=== PATIENT | female | born 1990 | race Caucasian/White ===

== ENCOUNTER 2018-04-13 02:09 | Emergency (ER) | payer MEDICAID ==
--- NOTE | 2018-04-13 02:19 | EDPHY ---
H & P Stated Complaint: syncope at [facility], A+Ox4, uncooperative/argumentative, ETOH Time Seen by Provider: 04/13/18 02:19 HPI/ROS: HPI CHIEF COMPLAINT: Alcohol Intoxication, syncope, ARC hold. HISTORY OF PRESENT ILLNESS: 28-year-old female, presents to the emergency room by EMS after she was brought initially to the alcohol recovery Center as she was highly intoxicated with alcohol however upon arrival to the center she has syncopal episode. Brief LOC. No head strike. She was subsequently then transported to the emergency room after she had a syncopal episode there. She arrives to ER room 3, highly intoxicated with alcohol. States she drank too much tonight. Denies any other complaints. Past Medical History: History of heroin abuse, polysubstance drug use, history of poly trauma Past Surgical History: No recent surgery. Social History: Alcohol this evening. Patient reports multiple beers and a shot. Family History: Noncontributory ROS REVIEW OF SYSTEMS: Limited due to patient's acute alcohol intoxication. Exam Constitutional Intoxicated, triage nursing summary reviewed, vital signs reviewed, Sleepy, smells of alcohol Eyes normal conjunctivae and sclera, horizontal beating nystagmus consistent acute alcohol intoxication, otherwise pupils equal and react to light HENT normal inspection, atraumatic, moist mucus membranes, no epistaxis, neck supple/ no meningismus, no raccoon eyes. Respiratory clear to auscultation bilaterally, normal breath sounds, no respiratory distress, no wheezing. Cardiovascular rate normal, regular rhythm, no murmur, no edema, distal pulses normal. Gastrointestinal soft, non-tender, no rebound, no guarding, normal bowel sounds, no distension, no pulsatile mass. Genitourinary no CVA tenderness. Musculoskeletal no midline vertebral tenderness, full range of motion, no calf swelling, no tenderness of extremities, no meningismus, good pulses, neurovascularly intact. Skin pink, warm, & dry, no rash, skin atraumatic. Neurologic sleepy, intoxicated with alcohol,, alert and oriented x 3, AAOx3, moves all 4 extremities equally, motor intact, sensory intact, CN II-XII intact , , normal vision, normal speech. Psychiatric normal mood/affect. Heme/Lymph/Immune no lymphadenopathy. Differential Diagnosis: Includes but is not limited to in a particular order acute alcohol intoxication, alcohol abuse, dehydration, electrolyte abnormality , nausea vomiting from acute alcohol intoxication, vasovagal syncope, orthostatic syncope, cardiac arrhythmia, electrolyte disturbance, dehydration Medical Decision Making: Plan for this patient she arrives to emergency room highly intoxicated had a syncopal episode at the detox center. And IV will be established the patient received IV fluid bolus, patient placed on residential monitor, obtain EKG, electrolytes, serum alcohol level and re-evaluate. Re-evaluation: EKG interpretation by me on record in [facility] system. Impression time of EKG 2:38 a.m., sinus rhythm rate of 86 without any signs of acute ischemia or cardiac arrhythmia. Unremarkable nonischemic EKG. 0250AM: Patient attempted to run out of room ER #3, to the ambulance bay and outside. Patient is on an ARC hold, and is highly intoxicated. Security had to bring her back inside and place her in ER room #21, which is far from the exit of the ER for her safety. Given her ETOH level is over 300, she is at risk of leaving the er by herself. She remains on an ARC hold and will need more time to sober. Serum alcohol level 339. At 3:55 a.m.. 3:55 a.m. patient intoxicated with etoh. For her safety she is too intoxicated be discharged safely from the emergency room she will need more time to sober. 0440: Patient is calm and cooperative answers my questions appropriately she is stable gait. She is on arc hold. We have asked the police to transfer her to [facility] detox center. Patient is comfortable this, clinically sober, ambulates well, answers questions appropriately and is calm and cooperative at this time. Source: Patient, EMS - Personal History LMP (Females 10-55): 15-21 Days Ago Current Tetanus/Diphtheria Vaccine: Yes Current Tetanus Diphtheria and Acellular Pertussis (TDAP): Yes - Medical/Surgical History Hx Asthma: No Hx Chronic Respiratory Disease: No Hx Diabetes: No Hx Cardiac Disease: No Hx Renal Disease: No Hx Cirrhosis: No Hx Alcoholism: Yes Hx HIV/AIDS: No Hx Splenectomy or Spleen Trauma: No Other PMH: ovarian cysts;depression, ETOH. MHD: cutter feb 2005; - Social History Smoking Status: Heavy smoker Constitutional: Initial Vital Signs Temperature (C) 36.5 C 04/13/18 02:13 Heart Rate 96 04/13/18 02:13 Respiratory Rate 18 04/13/18 02:13 Blood Pressure 121/80 H 04/13/18 02:13 O2 Sat (%) 95 04/13/18 02:13 O2 Delivery Mode Room Air Allergies/Adverse Reactions: No Known Allergies Allergy (Verified 04/13/18 02:12) Home Medications: Medication Instructions Recorded NK [No Known Home Meds] 04/13/18 Medical Decision Making - Data Points Laboratory Results: Laboratory Results 04/13/18 02:30 04/13/18 02:30 04/13/18 04/13/18 04/13/18 02:30 02:30 02:30 WBC 5.19 10^3/uL 10^3/uL (3.80-9.50) RBC 5.14 10^6/uL 10^6/uL (4.18-5.33) Hgb 16.5 g/dL H g/dL (12.6-16.3) Hct 47.5 % H % (38.0-47.0) MCV 92.4 fL fL (81.5-99.8) MCH 32.1 pg pg (27.9-34.1) MCHC 34.7 g/dL g/dL (32.4-36.7) RDW 14.4 % % (11.5-15.2) Plt Count 265 10^3/uL 10^3/uL (150-400) MPV 9.4 fL fL (8.7-11.7) Neut % (Auto) 47.7 % % (39.3-74.2) Lymph % (Auto) 43.0 % % (15.0-45.0) [place] % (Auto) 7.3 % % (4.5-13.0) Eos % (Auto) 1.0 % % (0.6-7.6) Baso % (Auto) 0.8 % % (0.3-1.7) Nucleat RBC Rel Count 0.0 % % (0.0-0.2) Absolute Neuts (auto) 2.48 10^3/uL 10^3/uL (1.70-6.50) Absolute Lymphs (auto) 2.23 10^3/uL 10^3/uL (1.00-3.00) Absolute Monos (auto) 0.38 10^3/uL 10^3/uL (0.30-0.80) Absolute Eos (auto) 0.05 10^3/uL 10^3/uL (0.03-0.40) Absolute Basos (auto) 0.04 10^3/uL 10^3/uL (0.02-0.10) Absolute Nucleated RBC 0.00 10^3/uL 10^3/uL (0-0.01) Immature Gran % 0.2 % % (0.0-1.1) Immature Gran # 0.01 10^3/uL 10^3/uL (0.00-0.10) Sodium 149 mEq/L H mEq/L (135-145) Potassium 4.1 mEq/L mEq/L (3.5-5.2) Chloride 114 mEq/L H mEq/L (97-110) Carbon Dioxide 24 mEq/l mEq/l (22-31) Anion Gap 11 mEq/L mEq/L (6-14) BUN 7 mg/dL mg/dL (7-23) Creatinine 0.6 mg/dL mg/dL (0.6-1.0) Estimated GFR > 60 Glucose 99 mg/dL mg/dL (70-100) Calcium 9.5 mg/dL mg/dL (8.5-10.4) Beta HCG, Qual NEGATIVE Ethyl Alcohol 339 mg/dL H mg/dL (0-10) Medications Given: Discontinued Medications Sodium Chloride (Ns) 1,000 mls @ 0 mls/hr IV EDNOW ONE; Wide Open PRN Reason: Protocol Stop: 04/13/18 02:23 Last Admin: 04/13/18 02:34 Dose: 1,000 mls Departure - Departure Disposition: Home, Routine, Self-Care Clinical Impression: Alcohol intoxication Qualifiers: Complication of substance-induced condition: uncomplicated Qualified Code(s): F10.920 - Alcohol use, unspecified with intoxication, uncomplicated Condition: Good Instructions: Alcohol Intoxication (ED), Abuse of Alcohol (ED) Referrals: NONE *PRIMARY CARE P,. [Primary Care Provider] - As per Instructions
[2018-04-13] MEDS ORDERED: NS 1,000 ML IV ONE (02:22)
[2018-04-13 02:39] LABS: PLATELET COUNT 265 10^3/uL (150-400)
[2018-04-13] MEDS ORDERED: NICOTINE POLACRILEX 2 MG GUM B ONE (04:28)
[2018-04-13] MEDS ORDERED: NICOTINE POLACRILEX 2 MG GUM B PRN (04:30)
[2018-04-13 04:37] VITALS: BP 103/57
--- NOTE | 2018-04-13 18:12 | CPEKG ---
Test Reason : OPEN Blood Pressure : / mmHG Vent. Rate : 086 BPM Atrial Rate : 083 BPM P-R Int : 134 ms QRS Dur : 090 ms QT Int : 369 ms P-R-T Axes : 079 068 051 degrees QTc Int : 442 ms Sinus rhythm Confirmed by Shannon Hewitt ([id number]) on 04/13/2018 6:11:47 PM Referred By: Wayne Bahena Confirmed By:Shannon Hewitt
== END 2018-04-13 04:44 | disposition home or self-care (01) ==
LOC: EDUNIT#
DX: F10.920 Alcohol use, unspecified with intoxication, uncomplicated (principal); E86.9 Volume depletion, unspecified
CPT/HCPCS: G0480

== ENCOUNTER 2018-07-30 16:26 | Emergency (ER) | payer MEDICAID, OTHER ==
[2018-07-30] MEDS ORDERED: ONDANSETRON 4 MG/2 ML VIAL IVP ONE (17:06)
[2018-07-30] MEDS ORDERED: NS 1,000 ML IV ONE ×2 (17:06)
[2018-07-30] MEDS ORDERED: FAMOTIDINE 20 MG/NACL 50 ML IV ONE (17:06)
[2018-07-30] MEDS ORDERED: LORazepam 2 MG/ML INJ IVP ONE (17:07)
[2018-07-30 17:39] LABS: PLATELET COUNT 56 10^3/uL (150-400)
[2018-07-30] MEDS ORDERED: POTASSIUM CL 20 MEQ PKT PO ONE (18:34)
[2018-07-30] MEDS ORDERED: CHLORDIAZEPOXIDE 25MG PREPK#6 BTL TAKEHOME ONE (20:01)
--- NOTE | 2018-07-30 20:01 | EDPHY ---
H & P Stated Complaint: "too much alcohol and no food" Time Seen by Provider: 07/30/18 16:59 HPI/ROS: Chief complaint: Alcohol intoxication, feeling poorly History of present illness: This is a 28-year-old female who presents to the emergency department with her father for evaluation of alcohol intoxication. Patient has a history of alcohol abuse. She reports she has been drinking heavily for at least a month. She is feeling extremely poorly. She describes decreased oral intake and generalized malaise. She would like to consider going to detox this evening. Review of systems: A 10 point review of systems was obtained and other than described above was negative - Personal History LMP (Females 10-55): Unknown - Medical/Surgical History Hx Asthma: No Hx Chronic Respiratory Disease: No Hx Diabetes: No Hx Cardiac Disease: No Hx Renal Disease: No Hx Cirrhosis: No Hx Alcoholism: Yes Hx HIV/AIDS: No Hx Splenectomy or Spleen Trauma: No Other PMH: ovarian cysts , depression, ETOH - Social History Smoking Status: Heavy smoker - Physical Exam Exam: General Appearance: Alert, nontoxic. Eyes: Pupils equal and round no pallor or injection. ENT, Mouth: Mucous membranes moist. Respiratory: There are no retractions, lungs are clear to auscultation. Cardiovascular: Regular rate and rhythm. Gastrointestinal: Abdomen is soft and non tender, no masses, bowel sounds normal. Neurological: Alert. Skin: Warm and dry, no rashes. No abnormal bruising or other bleeding noted. Musculoskeletal: Neck is supple non tender. Extremities are symmetrical, full range of motion. Psychiatric: No agitation. Constitutional: Initial Vital Signs Temperature (C) 36.7 C 07/30/18 16:30 Heart Rate 128 H 07/30/18 16:30 Respiratory Rate 18 07/30/18 16:30 Blood Pressure 137/94 H 07/30/18 16:30 O2 Sat (%) 95 07/30/18 16:30 O2 Delivery Mode Room Air Allergies/Adverse Reactions: No Known Allergies Allergy (Verified 04/13/18 02:12) Home Medications: Medication Instructions Recorded NK [No Known Home Meds] 04/13/18 Medical Decision Making ED Course/Re-evaluation: Patient seen under the supervision of my secondary supervising physician Dr. Katerina Russo. Patient presents to the emergency department reporting significant alcohol intake, poor oral intake otherwise and feeling unwell. She is IV hydrated. Symptomatically treated. She is feeling better. Blood studies are obtained, noteworthy for hypokalemia, and IV potassium and thrombocytopenia, no evidence of acute bleeding. She is amenable to going to the [facility] this evening. Her father will take her there. I have discussed the importance of proper oral intake. Return precautions are given. Differential Diagnosis: Included but not limited to alcohol intoxication, alcohol withdrawal, polysubstance abuse - Data Points Laboratory Results: Laboratory Results 07/30/18 16:59 07/30/18 16:59 07/30/18 07/30/18 07/30/18 16:59 16:59 16:59 WBC 3.47 10^3/uL L 10^3/uL (3.80-9.50) RBC 4.78 10^6/uL 10^6/uL (4.18-5.33) Hgb 15.4 g/dL g/dL (12.6-16.3) Hct 42.1 % % (38.0-47.0) MCV 88.1 fL fL (81.5-99.8) MCH 32.2 pg pg (27.9-34.1) MCHC 36.6 g/dL g/dL (32.4-36.7) RDW 14.3 % % (11.5-15.2) Plt Count 56 10^3/uL L 10^3/uL (150-400) MPV 9.9 fL fL (8.7-11.7) Neut % (Auto) 58.7 % % (39.3-74.2) Lymph % (Auto) 24.2 % % (15.0-45.0) [place] % (Auto) 15.3 % H % (4.5-13.0) Eos % (Auto) 0.9 % % (0.6-7.6) Baso % (Auto) 0.6 % % (0.3-1.7) Nucleat RBC Rel Count 0.0 % % (0.0-0.2) Absolute Neuts (auto) 2.04 10^3/uL 10^3/uL (1.70-6.50) Absolute Lymphs (auto) 0.84 10^3/uL L 10^3/uL (1.00-3.00) Absolute Monos (auto) 0.53 10^3/uL 10^3/uL (0.30-0.80) Absolute Eos (auto) 0.03 10^3/uL 10^3/uL (0.03-0.40) Absolute Basos (auto) 0.02 10^3/uL 10^3/uL (0.02-0.10) Absolute Nucleated RBC 0.00 10^3/uL 10^3/uL (0-0.01) Immature Gran % 0.3 % % (0.0-1.1) Immature Gran # 0.01 10^3/uL 10^3/uL (0.00-0.10) Sodium 140 mEq/L mEq/L (135-145) Potassium 2.9 mEq/L L mEq/L (3.5-5.2) Chloride 99 mEq/L mEq/L (97-110) Carbon Dioxide 26 mEq/l mEq/l (22-31) Anion Gap 15 mEq/L H mEq/L (6-14) BUN < 2 mg/dL L mg/dL (7-23) Creatinine 0.5 mg/dL L mg/dL (0.6-1.0) Estimated GFR > 60 Glucose 124 mg/dL H mg/dL (70-100) Calcium 8.4 mg/dL L mg/dL (8.5-10.4) Magnesium Beta HCG, Qual NEGATIVE 07/30/18 16:50 WBC RBC Hgb Hct MCV MCH MCHC RDW Plt Count MPV Neut % (Auto) Lymph % (Auto) [place] % (Auto) Eos % (Auto) Baso % (Auto) Nucleat RBC Rel Count Absolute Neuts (auto) Absolute Lymphs (auto) Absolute Monos (auto) Absolute Eos (auto) Absolute Basos (auto) Absolute Nucleated RBC Immature Gran % Immature Gran # Sodium Potassium Chloride Carbon Dioxide Anion Gap BUN Creatinine Estimated GFR Glucose Calcium Magnesium 1.9 mg/dL mg/dL (1.6-2.3) Beta HCG, Qual Medications Given: Discontinued Medications Chlordiazepoxide (Librium 25 Mg Prepack#6) 1 btl TAKEHOME EDNOW ONE Stop: 07/30/18 20:02 Last Admin: 07/30/18 20:05 Dose: 1 btl Chlordiazepoxide HCl (Librium) 25 mg PO EDNOW ONE Stop: 07/30/18 20:06 Last Admin: 07/30/18 20:08 Dose: 25 mg Sodium Chloride (Ns) 1,000 mls @ 0 mls/hr IV EDNOW ONE; Wide Open PRN Reason: Protocol Stop: 07/30/18 17:07 Last Admin: 07/30/18 17:28 Dose: 1,000 mls Sodium Chloride (Ns) 1,000 mls @ 0 mls/hr IV EDNOW ONE; Wide Open PRN Reason: Protocol Stop: 07/30/18 17:07 Last Admin: 07/30/18 19:07 Dose: Not Given Famotidine/Sodium Chloride (Pepcid 20 Mg (Premix)) 50 mls @ 200 mls/hr IV EDNOW ONE Stop: 07/30/18 17:20 Last Admin: 07/30/18 17:26 Dose: 50 mls Lorazepam (Ativan Injection) 1 mg IVP EDNOW ONE Stop: 07/30/18 17:08 Last Admin: 07/30/18 17:27 Dose: 1 mg Ondansetron HCl (Zofran) 4 mg IVP EDNOW ONE Stop: 07/30/18 17:07 Last Admin: 07/30/18 17:28 Dose: 4 mg Potassium Chloride (Klor Packets) 20 meq PO EDNOW ONE Stop: 07/30/18 18:35 Last Admin: 07/30/18 18:58 Dose: 20 meq Departure - Departure Disposition: Home, Routine, Self-Care Clinical Impression: Hypokalemia, Thrombocytopenia Alcohol intoxication Qualifiers: Complication of substance-induced condition: uncomplicated Qualified Code(s): F10.920 - Alcohol use, unspecified with intoxication, uncomplicated Condition: Good Instructions: Chlordiazepoxide (By mouth), Alcohol Intoxication (ED), Abuse of Alcohol (ED) Additional Instructions: Please go directly to the adult recovery center Insure you are drinking plenty of fluids to stay hydrated and eating proper meals If symptoms worsen or new symptoms develop return to the emergency department for recheck Referrals: NONE *PRIMARY CARE P,. [Primary Care Provider] - As per Instructions [facility],. [Clinic] - As per Instructions
[2018-07-30] MEDS ORDERED: chlordiazePOXIDE 25 MG CAP PO ONE (20:05)
[2018-07-30 20:11] VITALS: BP 127/86
== END 2018-07-30 20:12 | disposition home or self-care (01) ==
LOC: EEVIPCON 16:26
DX: E87.6 Hypokalemia (principal); D69.6 Thrombocytopenia, unspecified; F10.920 Alcohol use, unspecified with intoxication, uncomplicated; E86.9 Volume depletion, unspecified; F17.200 Nicotine dependence, unspecified, uncomplicated
CPT/HCPCS: 96365; J2060; J2405